=== PATIENT | female | born 1965 | race Caucasian/White ===

== ENCOUNTER 2021-10-10 15:49 | Observation (INO) ==
[2021-10-10 16:12] LABS: Basophils % 0.3 % (0.0-0.8); Eosinophils % 0.3 % (0.00-10.9); Hematocrit 34.8 VOL% (35.7-47.0); Hemoglobin 11.7 GM/DL (12.0-16.0); Immature Granulocytes % 0.7 %; Immature Granulocytes Absolute 0.05 #; Lymphocytes # 0.8 10*3/uL (1.4-4.0); Lymphocytes % 10.7 % (21.3-54.2); Mean Corpuscular HGB Conc 33.6 GM/DL (32-36); Mean Corpuscular Volume 91.3 FL (87-102); Mean Platelet Volume 11.2 FL (9.6-12.0); Monocytes # 0.8 10*3/uL (0.11-0.8); Platelet Count 109 T/CUMM (130-400); Red Blood Count 3.81 MC/CUMM (3.8-5.5); Red Cell Distribution Width 12.9 % (9.3-17.3); White Blood Count 7.1 T/CUMM (4-12)
[2021-10-10 16:38] LABS: Albumin 2.9 G/DL (3.4-5.0); Bilirubin,Total 0.7 MG/DL (0.20-1.00); Calcium 8.6 MG/DL (8.5-10.1); Osmolality,Calculated 276.2 MOS/KG (273-304); Potassium 3.6 MMOL/L (3.5-5.1); Total Protein 7.6 G/DL (6.4-8.2)
[2021-10-10 17:03] LABS: Platelet Estimate Adequate; Polychromasia 1+
[2021-10-10] MEDS ORDERED: ASPIRIN 325 MG TABLET PO STA (19:24)
[2021-10-10] MEDS ORDERED: cefTRIAXone 1,000 MG in SODIUM CHLORIDE 0.9% 100 ML IV STA (19:24)
[2021-10-10] MEDS ORDERED: MORPHINE 2 MG/1 ML SYRINGE IV STA (19:24)
[2021-10-10] MEDS ORDERED: ONDANSETRON 4 MG/2 ML VIAL IV STA (19:24)
[2021-10-10] MEDS ORDERED: NITROGLYCERIN 2% OINT 1 INCH/GM PACK TOP STA (19:24)
[2021-10-10] MEDS ORDERED: ALUM/MAG/SIMETH/LIDO VISC 1:1 30 ML BOTTLE PO STA (19:24)
[2021-10-10] MEDS ORDERED: ENOXAPARIN 100 MG/ML SYRINGE SUBCUT STA (19:36)
[2021-10-10] MEDS ORDERED: ENOXAPARIN 80 MG/0.8 ML SYRINGE SUBCUT STA (19:38)
[2021-10-10] MEDS ORDERED: NITROGLYCERIN SL 0.4 MG TABLET SL PRN (20:42)
[2021-10-10] MEDS ORDERED: ACETAMINOPHEN 325 MG TABLET PO PRN (20:42)
[2021-10-10] MEDS ORDERED: GLUCAGON 1 MG VIAL IM PRN (20:42)
[2021-10-10] MEDS ORDERED: ALBUTEROL 2.5 MG/3 ML NEB RESP TX PRN (20:42)
[2021-10-10] MEDS ORDERED: ONDANSETRON 4 MG/2 ML VIAL IV PRN (20:42)
[2021-10-10] MEDS ORDERED: DEXTROSE 10% 250 ML BAG IV PRN (20:53)
[2021-10-10] MEDS ORDERED: SODIUM CHLORIDE 0.9% 1,000 ML IV SCH (21:00)
[2021-10-10] MEDS ORDERED: CLORAZEPATE 3.75 MG TABLET PO PRN (21:56)
[2021-10-10] MEDS ORDERED: FUROSEMIDE 40 MG/4 ML VIAL IV STA (21:57)
[2021-10-10 22:22] LABS: RBC,Urine <1 /HPF (0-4); Squamous Epithelial Cell,Urine Occasional /HPF (0-10); Urine Appearance Clear (Clear); Urine Color Yellow (Yellow)
[2021-10-10 22:23] LABS: Bilirubin,Urine Negative (Negative); Blood, Urine Negative (Negative); Glucose,Urine (UA) 250 mg/dL (Negative); Ketones,Urine Negative (Negative); Nitrite,Urine Negative (Negative); Protein,Urine Negative (Negative); Urine Urobilinogen 0.2 eU/dL (<2.0)
[2021-10-10] MEDS: DOCUSATE SODIUM 100 MG CAPSULE PO SCH (22:30)
[2021-10-10] MEDS: AZITHROMYCIN INJ 500 MG in SODIUM CHLORIDE 0.9% 250 ML IV SCH (22:30)
[2021-10-11] MEDS: ALBUTEROL/IPRATROPIUM 3 ML NEB RESP TX SCH ×5 (00:40→19:16)
[2021-10-11 06:36] LABS: Calcium 8.6 MG/DL (8.5-10.1); Osmolality,Calculated 276.5 MOS/KG (273-304); Potassium 3.3 MMOL/L (3.5-5.1); Risk Ratio 3.67; Thyroid Stimulating Hormone 4.7 uIU/ml (0.358-3.74); VLDL Cholesterol 16.6 MG/DL
[2021-10-11 06:58] LABS: Basophils % 0.2 % (0.0-0.8); Eosinophils % 0.3 % (0.00-10.9); Hematocrit 35.4 VOL% (35.7-47.0); Hemoglobin 11.6 GM/DL (12.0-16.0); Immature Granulocytes % 0.9 %; Immature Granulocytes Absolute 0.05 #; Lymphocytes # 0.7 10*3/uL (1.4-4.0); Lymphocytes % 12.3 % (21.3-54.2); Mean Corpuscular HGB Conc 32.8 GM/DL (32-36); Mean Corpuscular Volume 92.9 FL (87-102); Mean Platelet Volume 11.8 FL (9.6-12.0); Monocytes # 0.6 10*3/uL (0.11-0.8); Monocytes % 10.2 % (1.7-12.7); Neutrophils % 76.1 % (38.7-73.9); Platelet Count 114 T/CUMM (130-400); Red Blood Count 3.81 MC/CUMM (3.8-5.5); Red Cell Distribution Width 12.9 % (9.3-17.3); White Blood Count 5.8 T/CUMM (4-12)
[2021-10-11] MEDS ORDERED: ASPIRIN 325 MG TABLET PO SCH (09:00)
[2021-10-11 09:35] LABS: INR 1.1; PT Patient Result 12.1 SECS (10.5-12.0); Partial Thromboplastin Time 28.1 SECS (23.8-32.1)
[2021-10-11] MEDS ORDERED: POTASSIUM CHLORIDE 20 MEQ TABLET PO ONE (09:36)
[2021-10-11] MEDS ORDERED: MAGNESIUM SULF RIDER 2 GM/50 ML PREMIX IV ONE (09:36)
[2021-10-11] MEDS: INSULIN REGULAR 100 UNIT/ML SUBCUT SCH ×4 (10:39→21:12)
[2021-10-11] MEDS: ENOXAPARIN 40 MG/0.4 ML SYRINGE SUBCUT SCH (11:15)
[2021-10-11] MEDS: PANTOPRAZOLE 40 MG TABLET PO SCH (11:16)
[2021-10-11] MEDS: DOCUSATE SODIUM 100 MG CAPSULE PO SCH ×2 (11:16→21:10)
[2021-10-11] MEDS ORDERED: cefTRIAXone 1,000 MG in SODIUM CHLORIDE 0.9% 100 ML IV SCH (21:00)
[2021-10-11] MEDS: carvediloL 6.25 MG TABLET PO SCH (21:11)
[2021-10-11] MEDS: AZITHROMYCIN INJ 500 MG in SODIUM CHLORIDE 0.9% 250 ML IV SCH (21:57)
[2021-10-12] MEDS: ALBUTEROL/IPRATROPIUM 3 ML NEB RESP TX SCH ×2 (00:38→07:10)
[2021-10-12 05:20] LABS: Basophils % 0.3 % (0.0-0.8); Eosinophils # 0.1 10*3/uL (0.0-0.87); Eosinophils % 0.8 % (0.00-10.9); Hematocrit 35.5 VOL% (35.7-47.0); Hemoglobin 11.6 GM/DL (12.0-16.0); Immature Granulocytes % 0.3 %; Immature Granulocytes Absolute 0.02 #; Lymphocytes # 1.3 10*3/uL (1.4-4.0); Lymphocytes % 19.9 % (21.3-54.2); Mean Corpuscular HGB Conc 32.7 GM/DL (32-36); Mean Corpuscular Volume 92.2 FL (87-102); Mean Platelet Volume 11.4 FL (9.6-12.0); Monocytes # 0.7 10*3/uL (0.11-0.8); Monocytes % 10.7 % (1.7-12.7); Platelet Count 112 T/CUMM (130-400); Red Blood Count 3.85 MC/CUMM (3.8-5.5); White Blood Count 6.3 T/CUMM (4-12)
[2021-10-12 05:51] LABS: Calcium 7.8 MG/DL (8.5-10.1); Osmolality,Calculated 277.4 MOS/KG (273-304); Potassium 3.8 MMOL/L (3.5-5.1)
[2021-10-12] MEDS ORDERED: CLOPIDOGREL 75 MG TABLET PO SCH (09:00)
[2021-10-12] MEDS ORDERED: LOSARTAN 50 MG TABLET PO SCH (09:00)
[2021-10-12] MEDS ORDERED: ASPIRIN EC 81 MG TABLET PO SCH (09:00)
[2021-10-12] MEDS ORDERED: ISOSORBIDE MONONITRATE 30 MG TABLET PO SCH (09:00)
[2021-10-12] MEDS ORDERED: ROSUVASTATIN 10 MG TABLET PO SCH (09:00)
[2021-10-12] MEDS: DOCUSATE SODIUM 100 MG CAPSULE PO SCH (09:19)
[2021-10-12] MEDS: carvediloL 6.25 MG TABLET PO SCH (09:20)
[2021-10-12] MEDS: LEVOTHYROXINE 125 MCG TABLET PO SCH ×2 (09:21→09:25)
[2021-10-12] MEDS: ENOXAPARIN 40 MG/0.4 ML SYRINGE SUBCUT SCH (09:21)
[2021-10-12] MEDS: PANTOPRAZOLE 40 MG TABLET PO SCH (09:21)
[2021-10-12] MEDS: INSULIN REGULAR 100 UNIT/ML SUBCUT SCH ×2 (09:25→13:01)
[2021-10-12 12:31] VITALS: BP 103/47
== END 2021-10-12 13:09 | disposition home or self-care (01) ==
LOC: N.EDINP 15:49 → N.ED 15:49 → N.TELEN 10-11 08:01
PROVIDERS: ADMIT Internal Medicine; ATTEND Internal Medicine

== ENCOUNTER 2022-04-20 18:14 | Inpatient (IN) ==
[2022-04-20] MEDS ORDERED: MORPHINE 2 MG/1 ML SYRINGE IV ONE (18:45)
[2022-04-20] MEDS ORDERED: ONDANSETRON 4 MG/2 ML VIAL IV ONE (18:45)
[2022-04-20] MEDS ORDERED: ASPIRIN 325 MG TABLET PO STA (18:45)
[2022-04-20] MEDS ORDERED: NITROGLYCERIN 2% OINT 1 INCH/GM PACK TOP STA (18:45)
[2022-04-20 18:51] LABS: Basophils % 0.3 % (0.0-0.8); Eosinophils # 0.1 10*3/uL (0.0-0.87); Eosinophils % 1.4 % (0.00-10.9); Hematocrit 36.3 VOL% (35.7-47.0); Immature Granulocytes % 0.3 %; Immature Granulocytes Absolute 0.01 #; Lymphocytes # 1.1 10*3/uL (1.4-4.0); Lymphocytes % 29.9 % (21.3-54.2); Mean Corpuscular HGB Conc 33.1 GM/DL (32-36); Mean Corpuscular Volume 94.5 FL (87-102); Mean Platelet Volume 11.2 FL (9.6-12.0); Monocytes # 0.3 10*3/uL (0.11-0.8); Monocytes % 8.5 % (1.7-12.7); Neutrophils % 59.6 % (38.7-73.9); Platelet Count 106 T/CUMM (130-400); Red Blood Count 3.84 MC/CUMM (3.8-5.5); Red Cell Distribution Width 13.1 % (9.3-17.3); White Blood Count 3.7 T/CUMM (4-12)
[2022-04-20 18:56] LABS: PT Patient Result 11.3 SECS (10.1-12.1)
[2022-04-20 19:13] LABS: Albumin 3.2 G/DL (3.4-5.0); Bilirubin,Total 0.5 MG/DL (0.20-1.00); Calcium 8.9 MG/DL (8.5-10.1); Osmolality,Calculated 289.5 MOS/KG (273-304); Potassium 3.7 MMOL/L (3.5-5.1); Total Protein 7.2 G/DL (6.4-8.2)
[2022-04-20] MEDS ORDERED: FUROSEMIDE 40 MG/4 ML VIAL IV STA (21:44)
[2022-04-20] MEDS ORDERED: diphenhydrAMINE CAP 25 MG CAPSULE PO PRN (21:45)
[2022-04-20] MEDS ORDERED: ACETAMINOPHEN 325 MG TABLET PO PRN (21:45)
[2022-04-20] MEDS ORDERED: ZALEPLON 5 MG CAPSULE PO PRN (21:45)
[2022-04-20] MEDS ORDERED: NICOTINE 21 MG/24 HR PATCH TRANSDERM PRN (21:45)
[2022-04-20] MEDS ORDERED: ONDANSETRON 4 MG/2 ML VIAL IV PRN (21:45)
[2022-04-20] MEDS ORDERED: ALBUTEROL 2.5 MG/3 ML NEB RESP TX PRN (21:45)
[2022-04-20] MEDS ORDERED: guaiFENesin/DM ER 600-30 MG TABLET PO PRN (21:45)
[2022-04-20] MEDS ORDERED: MORPHINE 2 MG/1 ML SYRINGE IV PRN (21:45)
[2022-04-20] MEDS ORDERED: hydrALAZINE 20 MG/1 ML VIAL IV PRN (21:45)
[2022-04-20] MEDS: LEVOFLOXACIN INJ 750 MG/150 ML PREMIX IV SCH (22:15)
[2022-04-20] MEDS: ALBUTEROL/IPRATROPIUM 3 ML NEB RESP TX SCH (23:14)
[2022-04-21] MEDS ORDERED: ENOXAPARIN 60 MG/0.6 ML SYRINGE SUBCUT STA (00:53)
[2022-04-21] MEDS: predniSONE 20 MG TABLET PO SCH ×2 (01:31→14:32)
[2022-04-21] MEDS: ALBUTEROL/IPRATROPIUM 3 ML NEB RESP TX SCH ×6 (03:00→23:00)
[2022-04-21 04:51] LABS: Basophils % 0.5 % (0.0-0.8); Hemoglobin 12.1 GM/DL (12.0-16.0); Immature Granulocytes % 0.5 %; Immature Granulocytes Absolute 0.02 #; Lymphocytes # 0.7 10*3/uL (1.4-4.0); Lymphocytes % 16.2 % (21.3-54.2); Mean Corpuscular HGB Conc 32.7 GM/DL (32-36); Mean Corpuscular Volume 95.4 FL (87-102); Mean Platelet Volume 11.2 FL (9.6-12.0); Monocytes # 0.2 10*3/uL (0.11-0.8); Monocytes % 5.5 % (1.7-12.7); Neutrophils % 76.3 % (38.7-73.9); Platelet Count 104 T/CUMM (130-400); Red Blood Count 3.88 MC/CUMM (3.8-5.5); Red Cell Distribution Width 13.1 % (9.3-17.3)
[2022-04-21 05:34] LABS: Calcium 8.5 MG/DL (8.5-10.1); Osmolality,Calculated 291.3 MOS/KG (273-304); Potassium 4.6 MMOL/L (3.5-5.1)
[2022-04-21] MEDS: INSULIN LISPRO 100 UNIT/ML SUBCUT SCH ×4 (08:25→21:52)
[2022-04-21] MEDS: ASPIRIN 325 MG TABLET PO SCH (09:00)
[2022-04-21] MEDS ORDERED: ASPIRIN 325 MG TABLET PO SCH (09:00)
[2022-04-21] MEDS: carvediloL 6.25 MG TABLET PO SCH ×2 (09:00→21:51)
[2022-04-21] MEDS: FUROSEMIDE 40 MG/4 ML VIAL IV SCH ×2 (09:00→16:17)
[2022-04-21] MEDS: ROSUVASTATIN 10 MG TABLET PO SCH (09:01)
[2022-04-21] MEDS: PANTOPRAZOLE 40 MG TABLET PO SCH (09:01)
[2022-04-21] MEDS: CLOPIDOGREL 75 MG TABLET PO SCH (09:01)
[2022-04-21] MEDS: ISOSORBIDE MONONITRATE 30 MG TABLET PO SCH (09:01)
[2022-04-21] MEDS ORDERED: GLUCAGON 1 MG VIAL IM PRN (12:10)
[2022-04-21] MEDS ORDERED: DEXTROSE 10% 250 ML BAG IV PRN (12:12)
[2022-04-21] MEDS: LEVOFLOXACIN INJ 750 MG/150 ML PREMIX IV SCH (21:51)
[2022-04-22] MEDS: predniSONE 20 MG TABLET PO SCH ×3 (01:59→21:54)
[2022-04-22] MEDS: ALBUTEROL/IPRATROPIUM 3 ML NEB RESP TX SCH ×6 (03:05→23:11)
[2022-04-22 05:45] LABS: Basophils % 0.2 % (0.0-0.8); Hematocrit 36.9 VOL% (35.7-47.0); Hemoglobin 12.5 GM/DL (12.0-16.0); Immature Granulocytes % 0.5 %; Immature Granulocytes Absolute 0.03 #; Lymphocytes # 0.7 10*3/uL (1.4-4.0); Mean Corpuscular HGB Conc 33.9 GM/DL (32-36); Mean Corpuscular Volume 92.9 FL (87-102); Monocytes # 0.3 10*3/uL (0.11-0.8); Monocytes % 5.8 % (1.7-12.7); Neutrophils % 81.5 % (38.7-73.9); Platelet Count 103 T/CUMM (130-400); Red Blood Count 3.97 MC/CUMM (3.8-5.5); Red Cell Distribution Width 12.7 % (9.3-17.3); White Blood Count 5.7 T/CUMM (4-12)
[2022-04-22 06:23] LABS: Calcium 9.6 MG/DL (8.5-10.1); Osmolality,Calculated 292.5 MOS/KG (273-304); Potassium 3.6 MMOL/L (3.5-5.1)
[2022-04-22] MEDS: INSULIN LISPRO 100 UNIT/ML SUBCUT SCH ×4 (08:30→21:00)
[2022-04-22] MEDS: ROSUVASTATIN 10 MG TABLET PO SCH (08:32)
[2022-04-22] MEDS: PANTOPRAZOLE 40 MG TABLET PO SCH (08:32)
[2022-04-22] MEDS: carvediloL 6.25 MG TABLET PO SCH ×2 (08:32→21:55)
[2022-04-22] MEDS: CLOPIDOGREL 75 MG TABLET PO SCH (08:32)
[2022-04-22] MEDS: ISOSORBIDE MONONITRATE 30 MG TABLET PO SCH (08:32)
[2022-04-22] MEDS: ASPIRIN 325 MG TABLET PO SCH (08:33)
[2022-04-22] MEDS: FUROSEMIDE 40 MG/4 ML VIAL IV SCH ×2 (08:33→16:31)
[2022-04-22] MEDS ORDERED: INSULIN GLARGINE 100 UNIT/ML SUBCUT SCH ×2 (09:00→14:11)
[2022-04-22] MEDS ORDERED: INSULIN LISPRO 100 UNIT/ML SUBCUT ONE (18:55)
[2022-04-22] MEDS ORDERED: LEVOFLOXACIN 500 MG TABLET PO SCH (21:00)
[2022-04-22] MEDS ORDERED: INSULIN REGULAR 100 UNIT/ML IV ONE (21:14)
[2022-04-23] MEDS: ALBUTEROL/IPRATROPIUM 3 ML NEB RESP TX SCH ×3 (03:08→11:32)
[2022-04-23 05:06] LABS: Basophils % 0.1 % (0.0-0.8); Hematocrit 38.1 VOL% (35.7-47.0); Hemoglobin 12.9 GM/DL (12.0-16.0); Immature Granulocytes % 0.7 %; Immature Granulocytes Absolute 0.05 #; Lymphocytes # 0.7 10*3/uL (1.4-4.0); Lymphocytes % 9.7 % (21.3-54.2); Mean Corpuscular HGB Conc 33.9 GM/DL (32-36); Mean Corpuscular Volume 92.9 FL (87-102); Mean Platelet Volume 11.5 FL (9.6-12.0); Monocytes # 0.3 10*3/uL (0.11-0.8); Monocytes % 3.5 % (1.7-12.7); Platelet Count 109 T/CUMM (130-400); Red Cell Distribution Width 12.7 % (9.3-17.3); White Blood Count 7.3 T/CUMM (4-12)
[2022-04-23 05:20] LABS: Calcium 9.4 MG/DL (8.5-10.1); Osmolality,Calculated 296.5 MOS/KG (273-304); Potassium 3.7 MMOL/L (3.5-5.1)
[2022-04-23] MEDS ORDERED: LEVOTHYROXINE 125 MCG TABLET PO SCH (06:00)
[2022-04-23 07:48] VITALS: BP 135/66
[2022-04-23] MEDS: ROSUVASTATIN 10 MG TABLET PO SCH (08:21)
[2022-04-23] MEDS: CLOPIDOGREL 75 MG TABLET PO SCH (08:21)
[2022-04-23] MEDS: PANTOPRAZOLE 40 MG TABLET PO SCH (08:22)
[2022-04-23] MEDS: ISOSORBIDE MONONITRATE 30 MG TABLET PO SCH (08:22)
[2022-04-23] MEDS: predniSONE 20 MG TABLET PO SCH (08:22)
[2022-04-23] MEDS: ASPIRIN 325 MG TABLET PO SCH (08:23)
[2022-04-23] MEDS: INSULIN LISPRO 100 UNIT/ML SUBCUT SCH ×2 (08:23→12:44)
[2022-04-23] MEDS: FUROSEMIDE 40 MG/4 ML VIAL IV SCH (08:23)
[2022-04-23] MEDS: carvediloL 6.25 MG TABLET PO SCH (08:23)
[2022-04-23] MEDS ORDERED: NICOTINE 21 MG/24 HR PATCH TRANSDERM SCH (09:00)
[2022-04-23] MEDS ORDERED: ESCITALOPRAM 10 MG TABLET PO SCH (09:00)
[2022-04-23] MEDS ORDERED: CETIRIZINE 10 MG TABLET PO SCH (09:00)
== END 2022-04-23 12:26 | disposition home or self-care (01) | DRG 140 ==
LOC: N.ED 18:14 → N.EDINP 22:05 → N.TELES 04-21 13:40
PROVIDERS: ADMIT Emergency Medicine; ATTEND Emergency Medicine